=== PATIENT | female | born 1995 | race Hispanic/Latino ===

== ENCOUNTER 2016-12-23 16:54 | Emergency (ER) | payer OTHER ==
[~2016-12-23] VITALS: Ht 165.1 cm; Wt 95.0 kg
[2016-12-23 17:36] LABS: HEMOGLOBIN 12.9 g/dl (12.0-16.0); IMMATURE GRANULOCYTES 0.2 % (0.0-1.0); MEAN CELL VOLUME 84.6 fL CALC (80.0-100.0); MEAN CORPUSCULAR HGB 27.3 pG CALC (26.0-32.0); MEAN CORPUSCULAR HGB CONC 32.3 g/L CALC (32.0-36.0); NEUT# 3.21 thou/uL (2.00-7.15); RED BLOOD COUNT 4.73 mill/uL (4.20-5.60); RED CELL DISTRI WIDTH 13.3 % (11.5-15.5)
[2016-12-23 17:55] LABS: ALBUMIN 4.5 g/dL (3.2-5.0); ALKALINE PHOSPHATASE 68 u/l (38-126); ANION GAP 17 (6-22 (CALC)); BILIRUBIN, TOTAL 0.5 mg/dL (0.0-1.4); BUN 14 mg/dL (7-17); BUN/CREATININE RATIO 26 (12-20 (CALC)); CALCIUM 8.9 mg/dL (8.4-10.2); CARBON DIOXIDE 26 mmol/l (22-30); CHLORIDE 106 mmol/l (95-108); CREATININE 0.6 mg/dL (0.5-1.0); GFR > 60 ML/MIN (>=60 (CALC)); GFR FOR AFR.AMER. > 60 ML/MIN (>=60 (CALC)); GLUCOSE 88 mg/dL (65-105); POTASSIUM 4.2 mmol/l (3.5-5.1); SGOT/AST 21 u/l (14-36); SGPT/ALT 30 u/l (9-52); SODIUM 144 mmol/l (137-146)
[2016-12-23] MEDS ORDERED: FLEXERIL PO (18:06)
[2016-12-23] MEDS ORDERED: MOTRIN800 MG PO (18:06)
[2016-12-23] MEDS ORDERED: LORTAB 5-325 MG1 TAB PO (18:06)
[2016-12-23 18:15] VITALS: BP 130/81
[2016-12-23 18:19] LABS: URINE BILIRUBIN - DIPSTICK NEGATIVE (NEGATIVE); URINE BLOOD DIPSTICK NEGATIVE (NEGATIVE); URINE CLARITY CLEAR; URINE COLOR YELLOW; URINE GLUCOSE - DIPSTICK NEGATIVE (NEGATIVE); URINE KETONE NEGATIVE (NEGATIVE); URINE LEUK ESTERASE NEGATIVE (NEGATIVE); URINE NITRITE - DIPSTICK NEGATIVE (Negative); URINE PROTEIN - DIPSTICK NEGATIVE (NEG-TRACE); URINE SPECIFIC GRAVITY >=1.030; URINE UROBILINOGEN - DIPSTICK 0.2 E.U./dL (0.2)
== END 2016-12-23 19:01 | disposition home or self-care (01) | DRG 552 ==
LOC: ED 16:54
PROVIDERS: Emergency Medicine
DX: M54.5 Low back pain (principal)

== ENCOUNTER 2017-04-17 16:39 | Emergency (ER) | payer SELFPAY ==
[~2017-04-17] VITALS: Ht 165.1 cm; Wt 68.2 kg
[~2017-04-17 16:39] MED LIST: FLEXERIL PO; LORTAB 5-325 MG1 TAB PO; MOTRIN800 MG PO
[2017-04-17] MEDS ORDERED: BACTRIM DS1 TAB PO (18:16)
[2017-04-17] MEDS ORDERED: CEPHALEXIN500 MG PO (18:16)
[2017-04-17] MEDS ORDERED: LORTAB 10-325 M1 TAB PO (18:16)
[2017-04-17 18:28] VITALS: BP 138/79
== END 2017-04-17 18:28 | disposition home or self-care (01) | DRG 603 ==
LOC: ED 16:39
PROC: 0H98XZZ Drainage of Buttock Skin, External Approach (ICD-10-PCS; principal; 2017-04-17)
DX: L05.01 Pilonidal cyst with abscess (principal)

== ENCOUNTER 2017-04-18 11:22 | Emergency (ER) | payer SELFPAY ==
[~2017-04-18] VITALS: Ht 165.1 cm; Wt 100.0 kg
[~2017-04-18 11:22] MED LIST changes: +BACTRIM DS1 TAB PO; +CEPHALEXIN500 MG PO; +LORTAB 10-325 M1 TAB PO
[2017-04-18 12:13] VITALS: BP 126/50
== END 2017-04-18 12:14 | disposition home or self-care (01) | DRG 951 ==
LOC: ED 11:22
DX: Z48.01 Encounter for change or removal of surgical wound dressing (principal)